=== PATIENT | female | born 1975 | race Caucasian/White ===

== ENCOUNTER 2024-10-23 11:01 | Emergency (ER) | payer OTHER ==
[2024-10-23 11:43] LABS: Absolute Basophils 0.1 K/uL (0-0.5); Absolute Eosinophils 0.2 K/uL (0-0.5); Absolute Lymphocytes (CBC) 3.1 K/uL (0.7-4.9); Absolute Monocytes 0.6 K/uL (0.1-1.3); Absolute Neutrophil 6.6 K/uL (1.8-8.0); Eosinophils % 1.5 % (0-4.4); Hematocrit 34.7 % (36.0-45.0); Hemoglobin 11.5 g/dL (12.0-15.0); Lymphocytes % 29.4 % (15.3-44.8); MCH 18.9 pg (27.0-35.0); MCV 57.4 fL (80-100); MPV 6.9 fL (7.6-11.3); Monocytes % 5.6 % (3.3-12.3); Neutrophils % 62.5 % (41.7-73.7); Platelets 587 thou/uL (152-406); RBC Red Blood Cell Count 6.04 M/uL (3.86-4.86); Red Cell Distribution Width 16.5 % (12.1-15.2)
[2024-10-23 11:48] LABS: Specific Gravity 1.013 (1.005-1.030)
[2024-10-23 11:50] LABS: Specific Gravity 1.013 (1.005-1.030); Urine Bacteria <20 /HPF (<20); Urine Bilirubin NEGATIVE (Negative); Urine Blood 3+ (OVER) (Negative); Urine Clarity Extremely Turbid (Clear); Urine Color Light-Orange (Yellow); Urine Crystals Unidentified Few /HPF (None Seen); Urine Culture Reflex Order REFLEXED; Urine Glucose 4+ (Over) (Negative); Urine Ketones NEGATIVE (Negative); Urine Microscopic Reflex YN ORDER UMIC; Urine Nitrite 1+ (Negative); Urine Protein 1+ (Negative); Urine RBC >50 /HPF (None Seen); Urine Urobilinogen Normal (Normal); Urine WBC >50 /HPF (<5); Urine WBC Clump Moderate /HPF (None Seen); Urine Yeast (Budding) Many /HPF (None Seen); Urine pH 6.5 (5.0-7.0)
[2024-10-23 11:56] LABS: Anion Gap 8.8 mEq/L (5.0-15.0); Potassium 3.8 mEq/L (3.5-5.1)
[2024-10-23] MEDS ORDERED: NA CHLORIDE 0.9% 1,000 ML ONE (12:57)
[2024-10-23] MEDS ORDERED: FLUCONAZOLE 100 MG TAB ONE (12:59)
[2024-10-23 13:08] LABS: Blood Morphology Comment NOTED (NOT SEEN); Platelet Estimate INCR; White Blood Cell Scan OK (OK)
[2024-10-23 13:09] LABS: Burr Cells FEW; Hypochromasia 2+; Microcytosis 3+; Ovalocytes SLIGHT
--- NOTE | 2024-10-23 13:17 | EDPHYS ---
Physician Documentation [facility] Name: Lory Terry Age: 49 yrs Sex: Female : 1975 Arrival Date: 10/23/2024 Time: 11:01 Bed 10 Private MD: ED Physician Rupesh Packer HPI: 10/23 11:45 This 49 yrs old Female presents to ER via Ambulatory with complaints of Blood in urine. ms3 11:45 Lory Keys, a 49-year-old female, presents to the emergency department with ms3 hematuria. Patient denies pain. Patient endorses urinary urgency and nausea. She denies fevers, chills, vomiting.. 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 - Infectious Disease History:: Denies. - Social history:: Smoking status: unknown. ROS: 11:45 Constitutional: Negative for fever, and chills. Cardiovascular: Negative for chest ms3 pain, and palpitations. Respiratory: Negative for shortness of breath, cough, wheezing, and pleuritic chest pain, Abdomen/GI: Negative for abdominal pain, nausea, vomiting, diarrhea, and constipation, 11:45 : Positive for hematuria, Exam: 11:45 Constitutional: This is a well developed, well nourished patient who is awake, alert, ms3 and in no acute distress. 11:45 Abdomen/GI: Soft, non-tender, with normal bowel sounds. No distension or tympany. No guarding or rebound. No evidence of tenderness throughout. Back: No spinal tenderness. No costovertebral tenderness. Full range of motion. 11:45 Cardiovascular: Rate: tachycardic, Rhythm: regular, Pulses: no pulse deficits are appreciated, Heart sounds: normal, normal S1and S2, Vital Signs: 11:17 BP 149 / 89; Pulse 109; Resp 17; Temp 98.4(O); Pulse Ox 98% on R/A; ap3 11:17 Weight 79.38 kg; ap3 12:42 BP 117 / 72; Pulse 99; Resp 16; Pulse Ox 98% ; me1 14:11 BP 141 / 76; Pulse 94; Resp 16; Temp 98.5; Pulse Ox 98% ; me1 MDM: 11:33 Medical Screening Exam initiated ms3 11:45 Differential diagnosis: urinary tract infection, Pyelonephritis vs Hematuria. ms3 13:17 Data reviewed: vital signs, nurses notes, lab test result(s), and as a result, I will ms3 discharge patient. I considered the following discharge prescriptions or medication management in the emergency department Medications were administered in the Emergency Department. See MAR. Counseling: I had a detailed discussion with the patient and/or guardian regarding the historical points, exam findings, and any diagnostic results supporting the discharge/admit diagnosis, lab results, the need for outpatient follow up, to return to the emergency department if symptoms worsen or persist or if there are any questions or concerns that arise at home. Special discussion: I discussed with the patient/guardian in detail that at this point there is no indication for admission to the hospital. It is understood, however, that if the symptoms persist or worsen the patient needs to return immediately for re-evaluation. ED course: Patient's hematuria likely secondary to urinary tract infection. Patient given prescription for Vantin. Patient with budding yeast noted in urinalysis and frequent yeast infections. Patient given 150 mg fluconazole p.o. in the emergency department. Patient to follow-up with her primary care physician in 2 to 3 days. Patient understands and agrees with plan. All questions were answered. Return precautions discussed include worsening symptoms, or any other concerns.. 10/23 11:20 Order name: CBC with Diff ap3 10/23 11:20 Order name: BMP; Complete Time: 12:20 ap3 10/23 11:20 Order name: Test, Urine; Complete Time: 12:20 ap3 10/23 11:20 Order name: Urinalysis w/ reflexes; Complete Time: 12:20 ap3 10/23 11:51 Order name: CBC Smear Scan EDMS 10/23 11:54 Order name: Urine Culture EDID Administered Medications: 13:08 Drug: NS 0.9% IV 1000 ml IV at 1 bolus Per protocol; to be given as a bolus over 60 me1 minutes Route: IV; Rate: 1 bolus; Site: left wrist; 14:12 Follow up: Response: No adverse reaction; IV Status: Completed infusion; IV Intake: me1 1000ml 13:08 Drug: Fluconazole PO 150 mg PO once Route: PO; me1 13:47 Follow up: Response: No adverse reaction me1 Disposition Summary: 10/23/24 13:16 Discharge Ordered Notes: Location: Home ms3 Condition: Stable ms3 Diagnosis - Gross hematuria ms3 - UTI/ Urinary tract infection, site not specified ms3 Followup: ms3 - With: Sudhir Torre DO - When: 2 - 3 days - Reason: Recheck today's complaints Discharge Instructions: - Discharge Summary Sheet ms3 - Hematuria, Adult ms3 - Urinary Tract Infection, Adult ms3 Forms: - Medication Reconciliation Form ms3 - Antibiotic Education ms3 - Prescription Opioid Use ms3 - Patient Portal Instructions ms3 - Leadership Thank You Letter ms3 Prescriptions: - cefpodoxime 100 mg Oral Tablet - take 1 tablet ORAL route every 12 hours for 10 days take with food; 20 tablet; ms3 Refills: 0, Product Selection Permitted Signatures: Dispatcher [employer] Melissa Johnson RN RN ap3 Rupesh Packer DO DO ms3 Kristie Nugent RN RN me1
--- NOTE | 2024-10-23 13:17 | ER ---
Nurse's Notes [facility] Name: Lory Terry Age: 49 yrs Sex: Female : 1975 Arrival Date: 10/23/2024 Time: 11:01 Bed 10 Private MD: Diagnosis: Gross hematuria;UTI/ Urinary tract infection, site not specified Presentation: 10/23 11:17 Chief complaint: Patient states: she has been having bloody urine since yesterday. ap3 patient denies any painful urination at this time, and patient reports that she is unable to hold her urine. Coronavirus screen: At this time, the client does not indicate any symptoms associated with coronavirus-19. Ebola Screen: No symptoms or risks identified at this time. Initial Sepsis Screen: Does the patient meet any 2 criteria? HR > 90 bpm. Does the patient have a suspected source of infection? No. Patient's initial sepsis screen is negative. Risk Assessment: Do you want to hurt yourself or someone else? Patient reports no desire to harm self or others. Onset of symptoms was October 22, 2024. 11:17 Method Of Arrival: Ambulatory ap3 11:17 Acuity: [place] 3 ap3 Triage Assessment: 11:20 General: Appears in no apparent distress. Behavior is calm, cooperative, appropriate ap3 for age. Pain: Denies pain. Neuro: Level of Consciousness is awake, alert, obeys commands, Oriented to person, place, time, situation. Cardiovascular: Patient's skin is warm and dry. Respiratory: Airway is patent Respiratory effort is even, unlabored. 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 - Infectious Disease History:: Denies. - Social history:: Smoking status: unknown. Screenin:21 Abuse screen: Denies threats or abuse. Nutritional screening: No deficits noted. ap3 Tuberculosis screening: No symptoms or risk factors identified. 11:21 [facility] ED Fall Risk Assessment (Adult) History of falling in the last 3 months, ap3 including since admission No falls in past 3 months (0 pts) Confusion or Disorientation No (0 pts) Intoxicated or Sedated No (0 pts) Impaired Gait No (0 pts) Mobility Assist Device Used No (0 pt) Altered Elimination No (0 pt) Score/Fall Risk Level 0 - 2 = Low Risk Oriented to surroundings, Maintained a safe environment, Educated pt \T\ family on fall prevention, incl call for assistance when getting out of bed, Assessed \T\ reinforced patient's understanding of fall precautions, Hourly rounding (assess needs \T\ fall precautionary measures) done, Used ambulatory aids as needed (educated on \T\ assisted with), Used gait belt as appropriate. Assessment: 12:37 General: Appears ill, well groomed, well developed, well nourished, Behavior is calm, me1 cooperative, appropriate for age, Reports she has been having bloody urine since yesterday. patient denies any painful urination at this time, and patient reports that she is unable to hold her urine. Pain: Denies pain. Neuro: Level of Consciousness is awake, alert, obeys commands, Oriented to person, place, time, situation, Appropriate for age. Cardiovascular: Patient's skin is warm and dry. Respiratory: Airway is patent Respiratory effort is even, unlabored, Respiratory pattern is regular, symmetrical. GI: No signs and/or symptoms were reported involving the gastrointestinal system. : Reports incontinence, bloody urine since yesterday. EENT: No signs and/or symptoms were reported regarding the EENT system. Derm: Skin is intact, is healthy with good turgor, Skin is pink, warm \T\ dry. Musculoskeletal: No signs and/or symptoms reported regarding the musculoskeletal system. 13:24 Reassessment: Discharge delayed for IV fluids to finish. me1 Vital Signs: 11:17 BP 149 / 89; Pulse 109; Resp 17; Temp 98.4(O); Pulse Ox 98% on R/A; ap3 11:17 Weight 79.38 kg; ap3 12:42 BP 117 / 72; Pulse 99; Resp 16; Pulse Ox 98% ; me1 14:11 BP 141 / 76; Pulse 94; Resp 16; Temp 98.5; Pulse Ox 98% ; me1 ED Course: 11:06 Patient arrived in ED. ra3 11:15 Rupesh Packer DO is Attending Physician. ms3 11:19 Triage completed. ap3 11:21 Arm band placed on right wrist. ap3 11:36 BMP Sent. bc6 11:36 CBC with Diff Sent. bc6 11:42 Initial lab(s) drawn, by me, sent to lab. Inserted saline lock: 22 gauge in left wrist, bc6 using aseptic technique. Blood collected. Flushed with 10 mL NS. 12:30 Kristie Nugent, RN is Primary Nurse. me1 12:37 Patient has correct armband on for positive identification. Bed in low position. Call me1 light in reach. Side rails up X 1. Provided Education on: POC. Verbalized understanding.. 12:37 No provider procedures requiring assistance completed. me1 13:16 Sudhir Torre DO is Referral Physician. ms3 14:11 IV discontinued, intact, bleeding controlled, No redness/swelling at site. Pressure me1 dressing applied. Administered Medications: 13:08 Drug: NS 0.9% IV 1000 ml IV at 1 bolus Per protocol; to be given as a bolus over 60 me1 minutes Route: IV; Rate: 1 bolus; Site: left wrist; 14:12 Follow up: Response: No adverse reaction; IV Status: Completed infusion; IV Intake: me1 1000ml 13:08 Drug: Fluconazole PO 150 mg PO once Route: PO; me1 13:47 Follow up: Response: No adverse reaction me1 Medication: 12:37 VIS not applicable for this client. me1 Intake: 14:12 IV: 1000ml; Total: 1000ml. me1 Outcome: 13:16 Discharge ordered by MD. ms3 14:12 Discharged to home ambulatory, me1 14:12 Condition: stable 14:12 Discharge instructions given to patient, Instructed on discharge instructions, follow up and referral plans. medication usage, Demonstrated understanding of instructions, follow-up care, medications, Prescriptions given X 1, 14:12 Patient left the ED. me1 Signatures: Melissa Oglesby RN RN ap3 Rupesh Packer DO DO ms3 Christine Saunders bc6 Kristie Nugent, BEVERLEY RN me1 Emeli Rosado ra3 Corrections: (The following items were deleted from the chart) 12:35 11:17 Chief complaint: Patient states: she has been having bloody urine since me1 yesterday. patient denies any painful urination at this time, and patient reports that she is unable to hold her urine ap3 13:37 13:37 EKG done, by ED staff, reviewed by Rupesh Packer DO me1 me1
[2024-10-23 16:50] VITALS: O2SAT 98
[2024-10-23 16:52] VITALS: BP 141/76; TEMP 98.5
== END 2024-10-23 14:12 | disposition home or self-care (01) ==
LOC: ER 11:01
DX: N39.0 Urinary tract infection, site not specified (principal); E11.9 Type 2 diabetes mellitus without complications
CPT/HCPCS: 87088; 85025; 81001; 87086; 80048; 36415; 81025; 96360; 99284; J7030; 87077; 87186